=== PATIENT | male | born 1985 | race Caucasian/White ===

== ENCOUNTER 2017-11-07 10:27 | Emergency (ER) | payer OTHER ==
[~2017-11-07] VITALS: Ht 185.4 cm; Wt 77.1 kg
[2017-11-07 10:40] VITALS: BP 121/68
--- NOTE | 2017-11-07 10:45 | NUR ---
[facility] PT AMBULATES TO BED 7 PATIENT WITH C/O RT HAND PAIN S/P LANDING ON IT WHIEL PLAYING BASKETBALL YESTERDAY, DENIES ALOC OR ANY OTHER INJURY MED HX: NONE RX:NONE Addendum: 11/07/17 at 1113 by DEANNA ICE PROVIDED TO THE PT FOR COMFORT
[2017-11-07] MEDS ORDERED: IBUPROFEN 800 MG TAB PO ONE (11:00)
--- NOTE | 2017-11-07 11:14 | NUR ---
XRAY AT BEDSIDE
[2017-11-07 12:06] VITALS: BP 132/73
--- NOTE | 2017-11-07 12:06 | NUR ---
Patient discharged with v/s stable. Written and verbal after care instructions given and explained. Patient alert, oriented and verbalized understanding of instructions. Ambulatory with steady gait. All questions addressed prior to discharge. ID band removed. Patient advised to follow up with PMD. Rx of MOTRIN given. Patient educated on indication of medication including possible reaction and side effects. Opportunity to ask questions provided and answered. Pain level decreased to 6/10; Pt given referral information for Ortho [facility] at [facility] for followup, advised to call [facility] for appointment with PMD.
== END 2017-11-07 12:06 | disposition home or self-care (01) ==
LOC: MED 10:27
DX: S62.306A Unspecified fracture of fifth metacarpal bone, right hand, initial encounter for closed fracture (principal); X58.XXXA Exposure to other specified factors, initial encounter; Y93.64 Activity, baseball; Y92.89 Other specified places as the place of occurrence of the external cause; Y99.8 Other external cause status
CPT/HCPCS: 29125; 73130; 99284; Q0092

== ENCOUNTER 2018-12-29 13:09 | Emergency (ER) | payer OTHER ==
[~2018-12-29] VITALS: Ht 180.3 cm; Wt 86.2 kg
[2018-12-29 13:16] VITALS: BP 135/75
--- NOTE | 2018-12-29 13:20 | NUR ---
ambulated back to er lobby with mother to wait for available room for md winn
--- NOTE | 2018-12-29 13:28 | NUR ---
PT TO ER BED 4
--- NOTE | 2018-12-29 13:35 | NUR ---
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 +2 pedal pulses--ambulatory with steady gait. PATIENT STATES PAIN OF 8/10 AT THIS TIME; PATIENT POSITIONED FOR COMFORT; HOB ELEVATED; BEDRAILS UP X1; BED DOWN. ER MD MADE AWARE OF PT STATUS.
[2018-12-29 14:35] VITALS: BP 135/75
--- NOTE | 2018-12-29 14:35 | NUR ---
LEFT WITHOUT BEING SEEN.
== END 2018-12-29 14:35 | disposition left against medical advice (07) ==
LOC: MED 13:09
DX: S90.512A Abrasion, left ankle, initial encounter (principal); S90.511A Abrasion, right ankle, initial encounter; Z53.21 Procedure and treatment not carried out due to patient leaving prior to being seen by health care provider; X58.XXXA Exposure to other specified factors, initial encounter; Y93.89 Activity, other specified; Y92.89 Other specified places as the place of occurrence of the external cause; Y99.0 Civilian activity done for income or pay

== ENCOUNTER 2021-12-21 14:35 | Emergency (ER) | payer SELFPAY ==
[~2021-12-21] VITALS: Ht 185.4 cm; Wt 88.5 kg
[2021-12-21 15:20] VITALS: BP 109/61
--- NOTE | 2021-12-21 15:22 | NUR ---
PATIENT LEFT WITHOUT BEING SEEN BY DR. PARRA. NO FURTHER CARE PROVIDED FOR PATIENT.
== END 2021-12-21 15:22 | disposition left against medical advice (07) ==
LOC: MED 14:35
DX: M79.604 Pain in right leg (principal); Z53.21 Procedure and treatment not carried out due to patient leaving prior to being seen by health care provider